=== PATIENT | male | born 1995 | race Caucasian/White ===

== ENCOUNTER 2018-12-15 04:16 | Emergency (ER) | payer BC ==
[~2018-12-15] VITALS: Ht 182.8 cm; Wt 99.8 kg
[~2018-12-15 04:16] MED LIST: AMOXICILLIN500 M2 PO; AMOXIL250 MG/5 M PO; ATARAX25 MG PO; CHERATUSSIN AC118 M1 PO; MIRALAX POWDER255 GM PO; MOTRIN400 MG PO; MOTRIN800 MG PO; NKHM; PREDNISONE20 MG PO; TAMIFLU75 MG PO; ULTRAM50 MG PO; Zofran4 MG PO
[2018-12-15 04:17] VITALS: BP 137/78
[2018-12-15] MEDS ORDERED: PREDNISONE10 MG PO (05:14)
[2018-12-15] MEDS ORDERED: ATARAX,VISTARIL50 MG PO (05:14)
== END 2018-12-15 05:30 | disposition home or self-care (01) ==
LOC: ED 04:16
DX: L24.9 Irritant contact dermatitis, unspecified cause (principal)

== ENCOUNTER 2019-01-03 19:44 | Emergency (ER) | payer BC ==
[~2019-01-03] VITALS: Ht 185.4 cm; Wt 99.8 kg
--- NOTE | ~2019-01-03 | EKG ---
[place], [place] ELECTROCARDIOGRAM REPORT NAME: SHON ZELAYA UNIT #: [id number] ROOM: DOCTOR: EPIPHANY DRAFT REPORT BIRTHDATE: [birth year] [facility] Test Date: 2019-01-03 Test Time: 20:44:17 Pat Name: SHON ZELAYA Department: Room: Gender: Shipping/Receiving Clerk: Lloyd Yancey : 1995 Requested By: JEFFERY KIM PA-C Order Number: [id number] Reading MD: Fermín Young MD Measurements Intervals [place] Rate: 70 P: 8 [place]: 152 QRS: 10 QRSD: 99 T: 26 QT: 367 QTc: 396 Interpretive Statements Sinus rhythm Nonspecific ST T changes Electronically Signed On 01-06-2019 7:22:04 PDT by Fermín Young MD CM:EKGRPT:ELECTROCARDIOGRAM REPORT [id number] JEFFERY KIM PA-C EPIPHANY DRAFT REPORT JEFFERY KIM PA-C
[~2019-01-03 19:44] MED LIST changes: +ATARAX,VISTARIL50 MG PO; +PREDNISONE10 MG PO
[2019-01-03 19:45] VITALS: BP 133/83
== END 2019-01-03 21:13 | disposition home or self-care (01) ==
LOC: ED 19:44
DX: T24.112A Burn of first degree of left thigh, initial encounter (principal); R51 Headache; W86.1XXA Exposure to industrial wiring, appliances and electrical machinery, initial encounter; Y93.89 Activity, other specified; Y92.89 Other specified places as the place of occurrence of the external cause; Y99.8 Other external cause status

== ENCOUNTER 2024-02-08 16:41 | Emergency (ER) | payer SELFPAY ==
[~2024-02-08] VITALS: Ht 180.3 cm; Wt 99.8 kg
[2024-02-08 17:27] VITALS: BP 144/97
[2024-02-08] MEDS ORDERED: AMOX-CLAV 875-1 EACH PO (17:30)
== END 2024-02-08 17:36 | disposition home or self-care (01) ==
LOC: ED 16:41
DX: H66.92 Otitis media, unspecified, left ear (principal); F17.290 Nicotine dependence, other tobacco product, uncomplicated

== ENCOUNTER 2024-05-26 13:00 | Emergency (ER) | payer SELFPAY ==
[~2024-05-26] VITALS: Ht 180.3 cm; Wt 99.8 kg
[~2024-05-26 13:00] MED LIST changes: +AMOX-CLAV 875-1 EACH PO
[2024-05-26 13:15] VITALS: BP 111/80
[2024-05-26] MEDS ORDERED: Ondansetron Hydrochloride 4 MG/2 ML VIAL IV ONE (14:35)
[2024-05-26] MEDS ORDERED: SODIUM CHLORIDE 0.9% 1,000 ML IV ONE (14:35)
[2024-05-26 14:57] LABS: BASO % 0.5 % (0.0-1.0); EOS # 0.1 10*3/uL (0.0-0.4); EOS % 0.9 % (1.0-4.0); HEMATOCRIT 43.5 % (42.0-52.0); MEAN CELL VOLUME 80.6 fl (80.0-94.0); MEAN CORPUSCULAR HGB 28.9 pg (27.0-31.0); MEAN CORPUSCULAR HGB CONC 35.9 g/dl (33.0-37.0); MEAN PLATELET VOLUME 9.7 fl (9.6-12.3); MONO # 1.2 10*3/uL (0.1-1.0); MONO % 13.6 % (3.0-9.0); NEUT % 70.3 % (47.0-73.0); PLATELET COUNT AUTOMATED 197 10*3/uL (130-400); RED CELL DISTRI WIDTH 12.3 % (0-14.5); WHITE BLOOD COUNT 8.6 10*3/uL (4.8-10.8)
[2024-05-26 15:21] LABS: BUN 11 mg/dl (9-23); CHLORIDE 103 mmol/L (98-107); LIPASE 27 U/L (12-53); POTASSIUM 3.3 mmol/L (3.4-5.1)
[2024-05-26] MEDS ORDERED: POTASSIUM CHLORIDE 20 MEQ TAB PO ONE (15:30)
[2024-05-26] MEDS ORDERED: Ondansetron4 MG SL (15:38)
[2024-05-26] MEDS ORDERED: TAMIFLU 75MG CA75 MG PO (15:38)
== END 2024-05-26 15:47 | disposition home or self-care (01) ==
LOC: ED 13:00
PROVIDERS: Internal Medicine
DX: J10.1 Influenza due to other identified influenza virus with other respiratory manifestations (principal); Z20.822 Contact with and (suspected) exposure to COVID-19; Z88.1 Allergy status to other antibiotic agents